=== PATIENT | male | born 1955 | race Caucasian/White ===

== ENCOUNTER 2017-05-26 01:13 | Emergency (ER) | payer OTHER ==
[~2017-05-26] VITALS: Ht 175.3 cm; Wt 91.2 kg
[~2017-05-26 01:13] MED LIST: ANAPROX DS550 M1 PO; ASPIRIN EC325 MG PO; COLCRYS0.6 MG PO; NAPROSYN500 MG PO; TENORMIN50 MG PO; ZESTRIL40 MG PO; ZOCOR40 MG PO
[2017-05-26] MEDS ORDERED: NORCO 5/3251 TABLET PO (03:22)
[2017-05-26 03:31] VITALS: BP 140/83
== END 2017-05-26 03:32 | disposition home or self-care (01) ==
LOC: EME 01:13
DX: M17.11 Unilateral primary osteoarthritis, right knee (principal); M16.11 Unilateral primary osteoarthritis, right hip; M10.9 Gout, unspecified; Z86.718 Personal history of other venous thrombosis and embolism; I10 Essential (primary) hypertension; E78.00 Pure hypercholesterolemia, unspecified; K21.9 Gastro-esophageal reflux disease without esophagitis; F17.200 Nicotine dependence, unspecified, uncomplicated
CPT/HCPCS: 73502; 73564; 93971; 99281; 99284

== ENCOUNTER 2018-03-10 01:46 | Emergency (ER) | payer OTHER ==
[~2018-03-10] VITALS: Ht 175.3 cm; Wt 83.0 kg
[~2018-03-10 01:46] MED LIST changes: +NORCO 5/3251 TABLET PO
[2018-03-10 02:34] LABS: APPEARANCE CLEAR ((CLEAR)); BILIRUBIN NEGATIVE; BLOOD SMALL; COLOR YELLOW ((YELLOW)); GLUCOSE (STRIP) NEGATIVE; KETONES NEGATIVE; LEUKOCYTES NEGATIVE; NITRITE NEGATIVE; PROTEIN (STRIP) >=500; SPECIFIC GRAVITY 1.014 (1.000-1.030); UROBILINOGEN 0.2 MG/DL (0.2-1.0)
[2018-03-10 02:37] LABS: BACTERIA NONE SEEN /HPF; EPITHELIAL CELLS NONE SEEN /HPF; MUCUS TRACE /LPF; RED BLOOD CELLS 0-5 /HPF (0-5); UCUL ADDED? NO; WHITE BLOOD CELLS 0-5 /HPF (0-5)
[2018-03-10] MEDS ORDERED: NORCO 5/3251 TABLET PO (02:50)
[2018-03-10] MEDS ORDERED: LIDODERM 5% P1 PATCH TD (02:50)
[2018-03-10 03:01] VITALS: BP 158/97
== END 2018-03-10 03:03 | disposition home or self-care (01) ==
LOC: EME 01:46
PROVIDERS: Physician Assistant
DX: M54.6 Pain in thoracic spine (principal); R10.9 Unspecified abdominal pain; I10 Essential (primary) hypertension; E78.5 Hyperlipidemia, unspecified; Z86.718 Personal history of other venous thrombosis and embolism; Z79.82 Long term (current) use of aspirin; F17.200 Nicotine dependence, unspecified, uncomplicated
CPT/HCPCS: 81003; 99281; 99284